=== PATIENT | male | born 1985 | race Caucasian/White ===

== ENCOUNTER 2021-05-01 10:37 | Emergency (ER) | payer BC, OTHER | END 2021-05-01 11:53 | disposition left against medical advice (07) | LOC: MW.ED 10:37 | DX: Z53.21 Procedure and treatment not carried out due to patient leaving prior to being seen by health care provider (principal) ==

== ENCOUNTER 2022-07-26 10:56 | Day surgery (SDC) | payer BC, OTHER ==
[~2022-07-26 10:56] MED LIST: Lactated Ringers 1,000 ML IV SCH; Propofol 200 MG/20 ML SDV ONE
[2022-07-26] MEDS ORDERED: Propofol 200 MG/20 ML SDV ONE (12:39)
[2022-07-26] MEDS ORDERED: Lactated Ringers 1,000 ML IV SCH (13:15)
[2022-07-26 14:55] VITALS: BP 112/72; PULSE 74
== END 2022-07-26 13:36 | disposition home or self-care (01) ==
LOC: MW.SDS 10:56
PROVIDERS: ATTEND Surgery
DX: K29.50 Unspecified chronic gastritis without bleeding (principal); K57.30 Diverticulosis of large intestine without perforation or abscess without bleeding; K29.00 Acute gastritis without bleeding; K20.90 Esophagitis, unspecified without bleeding; J20.9 Acute bronchitis, unspecified; Z79.899 Other long term (current) drug therapy; Z98.890 Other specified postprocedural states; Z87.891 Personal history of nicotine dependence
CPT/HCPCS: 43239; 45378; J2704; J7120

== ENCOUNTER 2022-09-29 13:37 | Emergency (ER) | payer BC ==
[2022-09-29 15:03] LABS: BLOOD UREA NITROGEN,BUN 19 mg/dL (7.0-18.0); CARBON DIOXIDE,CO2 26.9 mmol/L (21.0-32.0); CHLORIDE,CL 101 mmol/L (98-107); GLUCOSE RANDOM 112 mg/dL (74-106); POTASSIUM,K 4.1 mmol/L (3.5-5.1); SODIUM,NA 138 mmol/L (136-148)
[2022-09-29 15:06] LABS: ESTIMATED GFR 101 mL/min (>60)
[2022-09-29 15:48] VITALS: BP 117/78; PULSE 76
== END 2022-09-29 15:47 | disposition home or self-care (01) ==
LOC: MW.ED 13:37
DX: R07.89 Other chest pain (principal)
CPT/HCPCS: 36415; 71045; 71045-26; 80053; 84484; 85025; 93005; 93010; 99283; 99285

== ENCOUNTER 2022-11-07 17:04 | Emergency (ER) | payer BC ==
[2022-11-07] MEDS ORDERED: Sodium Chloride 0.9% 2.5 ML Syringe FLUSH PRN (17:29)
[2022-11-07] MEDS ORDERED: Sodium Chloride 0.9% 10 ML Syringe FLUSH PRN (17:29)
[2022-11-07 17:34] LABS: BASOPHILS PERCENT AUTO 0.2 % (0.0-1.5); EOSINOPHILS ABSOLUTE AUTO 0.2 K/uL (0.0-0.7); EOSINOPHILS PERCENT AUTO 2.2 % (0.0-7.0); HEMATOCRIT 42.2 % (38.0-50.0); HEMOGLOBIN 14.5 g/dL (13.0-17.0); LYMPHOCYTES ABSOLUTE AUTO 2.2 K/uL (0.6-2.4); LYMPHOCYTES PERCENT AUTO 25.6 % (16.0-40.0); MEAN CORPUSCULAR HEMOGLOBIN 29.9 pg (27.0-32.0); MEAN CORPUSCULAR HGB CONC 34.4 g/dL (31.0-37.0); MONOCYTES ABSOLUTE AUTO 0.6 K/uL (0.0-0.8); MONOCYTES PERCENT AUTO 7.3 % (0.0-15.0); NEUTROPHILS ABSOLUTE AUTO 5.6 K/uL (1.4-5.7); NEUTROPHILS PERCENT AUTO 64.7 % (48.0-80.0); NRBC ABSOLUTE 0 K/uL; PLATELET COUNT,PLT 310 K/uL (150-400); RED BLOOD CELL COUNT 4.85 M/uL (4.50-5.90); WHITE BLOOD CELL COUNT,WBC 8.59 K/uL (4.0-11.0)
[2022-11-07 17:53] LABS: A/G RATIO 1.3 (0.9-1.6); ALBUMIN 4.1 g/dL (3.4-5.0); BILIRUBIN TOTAL 0.3 mg/dL (0.2-1.0); CALCIUM 9.6 mg/dL (8.5-10.1); CARBON DIOXIDE,CO2 26.4 mmol/L (21.0-32.0); CREATININE 1.2 mg/dL (0.8-1.3); EST CRCL DRUG DOSING (CG) 77.53 mL/min; POTASSIUM,K 4.1 mmol/L (3.5-5.1); PROTEIN TOTAL,TP 7.3 g/dL (6.4-8.2)
[2022-11-07] MEDS ORDERED: Iopamidol 755 MG/ML 500 ML Multipack Bottle IVPUSH ONE (18:15)
[2022-11-07] MEDS ORDERED: Ondansetron 4 MG/2 ML SDV IVPUSH ONE (18:41)
[2022-11-07] MEDS ORDERED: Morphine 4 MG/ML Syringe IVPUSH ONE (18:41)
[2022-11-07 19:12] LABS: APPEARANCE,URINE CLEAR; BILIRUBIN,URINE NEGATIVE (NEGATIVE); COLOR,URINE YELLOW; GLUCOSE,URINE NEGATIVE (NEGATIVE); KETONES,URINE NEGATIVE (NEGATIVE); LEUKOCYTE ESTERASE,URINE NEGATIVE (NEGATIVE); NITRITE,URINE NEGATIVE (NEGATIVE); OCCULT BLOOD,URINE NEGATIVE (NEGATIVE); PH,URINE 6.5 (5.0-8.0); PROTEIN,URINE NEGATIVE (NEGATIVE); UROBILINOGEN,URINE 0.2 EU/dL (<2.0)
[2022-11-07] MEDS ORDERED: Ketorolac 30 MG/ML SDV IVPUSH ONE (19:39)
[2022-11-07] MEDS ORDERED: Acetaminophen 325 MG Tab PO ONE (19:54)
[2022-11-07 20:00] VITALS: BP 123/68; PULSE 70
== END 2022-11-07 19:59 | disposition home or self-care (01) ==
LOC: MW.ED 17:04
DX: K55.069 Acute infarction of intestine, part and extent unspecified (principal); K63.89 Other specified diseases of intestine
CPT/HCPCS: 36415; 74177; 80053; 81003; 85025; 96374; 99284; A9270; J1885; J3490; Q9967

== ENCOUNTER 2023-07-30 20:02 | Emergency (ER) | payer BC ==
[2023-07-30] MEDS ORDERED: Sodium Chloride 0.9% 10 ML Syringe FLUSH PRN (21:40)
[2023-07-30] MEDS ORDERED: Sodium Chloride 0.9% 2.5 ML Syringe FLUSH PRN (21:40)
[2023-07-30 22:04] LABS: BASOPHILS ABSOLUTE AUTO 0.04 K/uL (0.00-0.20); BASOPHILS PERCENT AUTO 0.4 % (0.0-1.0); EOSINOPHILS ABSOLUTE AUTO 0.17 K/uL (0.00-0.45); EOSINOPHILS PERCENT AUTO 1.9 % (0.0-6.0); HEMATOCRIT 40.3 % (42.0-52.0); HEMOGLOBIN 14.1 g/dL (14.0-18.0); IMMATURE GRAN ABSOLUTE AUTO 0.02 K/uL (0.00-0.05); IMMATURE GRAN PERCENT AUTO 0.2 % (0.0-0.4); LYMPHOCYTES PERCENT AUTO 30.5 % (24.0-44.0); MEAN CORPUSCULAR HEMOGLOBIN 30.1 pg (28.0-32.0); MEAN CORPUSCULAR VOLUME 85.9 fL (83.0-99.0); MEAN PLATELET VOLUME 8.6 fL (9.4-12.4); MONOCYTES ABSOLUTE AUTO 0.77 K/uL (0.00-0.80); MONOCYTES PERCENT AUTO 8.4 % (0.0-8.0); NEUTROPHILS ABSOLUTE AUTO 5.37 K/uL (1.80-7.70); NEUTROPHILS PERCENT AUTO 58.6 % (41.0-71.0); PLATELET COUNT,PLT 316 K/uL (150-400); RED BLOOD CELL COUNT 4.69 M/uL (4.52-5.90); WHITE BLOOD CELL COUNT,WBC 9.17 K/uL (3.9-11.3)
[2023-07-30 22:18] LABS: INR 0.98 (0.86-1.11)
[2023-07-30 22:26] LABS: A/G RATIO 1.3 (0.9-1.6); ALBUMIN 4.1 g/dL (3.4-5.0); BILIRUBIN TOTAL 0.3 mg/dL (0.2-1.0); CALCIUM 9.3 mg/dL (8.5-10.1); CARBON DIOXIDE,CO2 25.1 mmol/L (21.0-32.0); CREATININE 1.1 mg/dL (0.8-1.3); EST CRCL DRUG DOSING (CG) 84.58 mL/min; POTASSIUM,K 3.9 mmol/L (3.5-5.1); PROTEIN TOTAL,TP 7.3 g/dL (6.4-8.2)
[2023-07-30 23:05] VITALS: BP 129/86; PULSE 72
== END 2023-07-30 23:04 | disposition home or self-care (01) ==
LOC: MW.ED 20:02
DX: R20.2 Paresthesia of skin (principal)
CPT/HCPCS: 36415; 72125; 72128; 72131; 80053; 83735; 85025; 85610; 99284; J3490; 99282